=== PATIENT | male | born 1975 | race Hispanic/Latino ===

== ENCOUNTER 2017-04-12 14:59 | Emergency (ER) | payer BC ==
[2017-04-12] MEDS ORDERED: NAPROXEN 500 MG TABLET ONE (15:50)
[2017-06-11] MEDS ORDERED: ACET-2743 PO (14:50)
== END 2017-04-12 15:56 | disposition home or self-care (01) ==
LOC: EDH 14:59
DX: R51 Headache (principal); R20.0 Anesthesia of skin
CPT/HCPCS: 99282

== ENCOUNTER 2017-06-14 07:43 | Day surgery (SDC) | payer BC ==
[2017-06-11 14:05] VITALS: BP 146/99
[2017-06-11 14:52] LABS: BASOPHILS % (AUTO) 0.8 % (0.0-5.0); BILIRUBIN,URINE Negative (NEGATIVE); COLOR,URINE Yellow (YELLOW); EOSINOPHILS % (AUTO) 1.2 % (0.0-8.0); GLUCOSE, URINE (UA) Negative (NEGATIVE); HEMATOCRIT 44.7 % (42-54); KETONES,URINE Negative (NEGATIVE); LEUKOCYTE ESTERASE ,URINE Negative (NEGATIVE); MEAN CORPUSCULAR HEMOGLOBIN 30.8 pg (27.0-33.0); MEAN CORPUSCULAR HGB CONC 34.2 g/dL (32.0-36.0); MONOCYTES % (AUTO) 6.6 % (3.0-13.0); NEUTROPHILS % (AUTO) 56.4 % (40.0-77.0); NITRATE,URINE Negative (NEGATIVE); OCCULT BLOOD,URINE Negative (NEGATIVE); PLATELET COUNT (AUTO) 219 K/uL (130-400); PROTEIN,URINE Negative (NEGATIVE); RED BLOOD CELL COUNT(AUTO) 4.96 MIL/uL (4.50-6.20); RED CELL DISTRIBUTION WIDTH 12.7 % (11.0-15.5); UROBILINOGEN,URINE 0.2 mg/dL (0.2-1.0); WHITE BLOOD COUNT (AUTO) 7.8 K/uL (4.8-10.8)
[2017-06-11 14:54] LABS: APPEARANCE,URINE CLEAR (CLEAR)
[~2017-06-14] VITALS: Ht 176.5 cm; Wt 82.2 kg
[2017-06-14] VITALS (16 sets, daily range): BP systolic 89–141; BP diastolic 45–90
[~2017-06-14 07:43] MED LIST: ACET-2743 PO; CEFAZOLIN SODIUM 1 GM VIAL IVP SCH
[2017-06-14] MEDS ORDERED: LACTATED RINGERS 1000ML 1,000 ML IV ONE (08:23)
[2017-06-14] MEDS ORDERED: BUPIVACAINE/PF 0.25% 30ML VIAL IJ ONE (09:15)
[2017-06-14] MEDS ORDERED: LIDOCAINE HCL MPF 1% 5ML VIAL ONE (09:35)
[2017-06-14] MEDS ORDERED: LIDOCAINE HCL 4% LTA SOL 4 ML VIAL ONE (09:35)
[2017-06-14] MEDS ORDERED: ONDANSETRON HCL MDV 20ML 2 MG/ML VIAL ONE (09:35)
[2017-06-14] MEDS ORDERED: LIDOCAINE HCL 2% JELLY 5 ML ONE (09:35)
[2017-06-14] MEDS ORDERED: PROPOFOL 10 MG/ML 20ML VIAL IV ONE ×2 (09:35→09:54)
[2017-06-14] MEDS ORDERED: MIDAZOLAM HCL 1 MG/ML 2ML VIAL ONE (09:35)
[2017-06-14] MEDS ORDERED: LIDOCAINE PF 2% 5ML ABBOJECT ONE (09:35)
[2017-06-14] MEDS ORDERED: DEXAMETHASONE SOD PHOSPHATE 10MG/ML 1ML VIAL ONE (09:35)
[2017-06-14] MEDS ORDERED: FENTANYL CITRATE PF 50 MCG/1 ML 2ML VIAL ONE (09:36)
== END 2017-06-14 12:50 | disposition home or self-care (01) ==
LOC: DAH 07:43
PROVIDERS: ATTEND Surgery
DX: K42.9 Umbilical hernia without obstruction or gangrene (principal); K40.90 Unilateral inguinal hernia, without obstruction or gangrene, not specified as recurrent
CPT/HCPCS: 36415; 49505; 49585; 81003; 85025; A4450; A4452; A4930 ×2; C1729; C1781 ×2; J1100; J2001; J2250; J2704 ×2; J3010; J3490 ×2; J7030; J7120

== ENCOUNTER 2017-06-21 08:13 | Inpatient (IN) | payer BC ==
[~2017-06-21] VITALS: Ht 175.3 cm; Wt 81.9 kg
[~2017-06-21 08:13] MED LIST changes: -CEFAZOLIN SODIUM 1 GM VIAL IVP SCH
[2017-06-21] MEDS ORDERED: DIATR MEGLU/DIATRIZOATE SODIUM 30 ML BOTTLE ONE (08:42)
[2017-06-21] MEDS ORDERED: IOPAMIDOL-370 75 ML VIAL IV ONE (08:42)
[2017-06-21 08:44] LABS: BASOPHILS % (AUTO) 0.5 % (0.0-5.0); EOSINOPHILS % (AUTO) 0.2 % (0.0-8.0); HEMATOCRIT 43.6 % (42-54); LYMPHOCYTES % (AUTO) 10.6 % (21.0-51.0); MEAN CORPUSCULAR HEMOGLOBIN 31.1 pg (27.0-33.0); MEAN CORPUSCULAR HGB CONC 34.5 g/dL (32.0-36.0); MONOCYTES % (AUTO) 8.2 % (3.0-13.0); NEUTROPHILS % (AUTO) 80.5 % (40.0-77.0); PLATELET COUNT (AUTO) 222 K/uL (130-400); RED BLOOD CELL COUNT(AUTO) 4.85 MIL/uL (4.50-6.20); RED CELL DISTRIBUTION WIDTH 12.8 % (11.0-15.5); WHITE BLOOD COUNT (AUTO) 14.9 K/uL (4.8-10.8)
[2017-06-21] MEDS ORDERED: SODIUM CHLORIDE 0.9% 1000ML 3,000 ML IV ONE (08:53)
[2017-06-21 09:04] LABS: CARBON DIOXIDE 30 mmol/L (21-32); CHLORIDE 96 mmol/L (101-111); CREATININE 1.1 mg/dL (0.5-1.5); GLOMERULAR FILTR. RATE CALC 79 mL/min (>60); GLUCOSE,RANDOM 134 mg/dL (70-105); POTASSIUM 3.7 mmol/L (3.5-5.1); SODIUM SERUM 135 mmol/L (136-145); UREA NITROGEN, BLOOD 13 mg/dL (7-18)
[2017-06-21] MEDS ORDERED: SODIUM CHLORIDE 0.9% 100 ML IV ONE (09:06)
[2017-06-21] MEDS ORDERED: MEROPENEM 1 GM VIAL ONE (09:06)
[2017-06-21 09:20] LABS: ALANINE AMINOTRANSFERASE 27 U/L (12-78); ALBUMIN 3.6 g/dL (3.5-5.0); ASPARTATE AMINOTRANSFERASE 19 U/L (10-37); BILIRUBIN,TOTAL 0.7 mg/dL (0.2-1.0); CREATINE KINASE MB < 0.5 ng/mL (0.5-3.6); CREATINE KINASE, TOTAL 47 U/L (21-232); MYOGLOBIN 41 ng/mL (10-92); TOTAL PROTEIN, SERUM 8.7 g/dL (6.0-8.3); TROPONIN I < 0.04 ng/mL (0.00-0.06)
[2017-06-21 09:23] LABS: PARTIAL THROMBOPLASTIN TIME 30.6 SEC (26.3-35.5); PROTHROMBIN TIME 10.5 SEC (9.6-11.6)
[2017-06-21 09:33] LABS: APPEARANCE,URINE Clear (CLEAR); BILIRUBIN,URINE Negative (NEGATIVE); COLOR,URINE Yellow (YELLOW); GLUCOSE, URINE (UA) Negative (NEGATIVE); KETONES,URINE Negative (NEGATIVE); LEUKOCYTE ESTERASE ,URINE Negative (NEGATIVE); NITRATE,URINE Negative (NEGATIVE); OCCULT BLOOD,URINE Negative (NEGATIVE); PROTEIN,URINE Negative (NEGATIVE); UROBILINOGEN,URINE 0.2 mg/dL (0.2-1.0)
[2017-06-21] MEDS ORDERED: ACETAMINOPHEN 325 MG TAB ONE ×2 (11:23→17:07)
[2017-06-21] MEDS ORDERED: MORPHINE SULFATE 4 MG/1ML SYG ONE (15:13)
[2017-06-21] MEDS ORDERED: LACTATED RINGERS 1000ML 1,000 ML IV ONE (15:13)
[2017-06-21 16:11] VITALS: BP 145/82
[2017-06-21] MEDS ORDERED: MORPHINE SULFATE 4 MG/1ML SYG IV PRN (17:15)
[2017-06-21] MEDS ORDERED: ONDANSETRON HCL MDV 20ML 2 MG/ML VIAL IVP PRN (17:30)
[2017-06-21] MEDS: LACTATED RINGERS 1000ML 1,000 ML IV SCH (18:11)
[2017-06-21] MEDS: METRONIDAZOLE 500MG/100ML BAG 100 ML IVPB SCH (18:13)
[2017-06-21 20:42] VITALS: BP 133/73
[2017-06-21] MEDS: MEROPENEM 1 GM VIAL IVP SCH (22:19)
[2017-06-21] MEDS: ACETAMINOPHEN 325 MG TAB PO PRN (22:28)
[2017-06-21 23:26] VITALS: BP 133/73
[2017-06-22] VITALS (22 sets, daily range): BP systolic 115–146; BP diastolic 65–91
[2017-06-22] MEDS: METRONIDAZOLE 500MG/100ML BAG 100 ML IVPB SCH ×3 (02:34→17:20)
[2017-06-22] MEDS: LACTATED RINGERS 1000ML 1,000 ML IV SCH (02:36)
[2017-06-22 03:49] LABS: HEMATOCRIT 37.4 % (42-54); MEAN CORPUSCULAR HGB CONC 34.5 g/dL (32.0-36.0); MEAN CORPUSCULAR VOLUME 89.7 fL (79-99); PLATELET COUNT (AUTO) 209 K/uL (130-400); RED BLOOD CELL COUNT(AUTO) 4.17 MIL/uL (4.50-6.20); RED CELL DISTRIBUTION WIDTH 12.4 % (11.0-15.5); WHITE BLOOD COUNT (AUTO) 13.3 K/uL (4.8-10.8)
[2017-06-22 03:55] LABS: CREATININE 0.9 mg/dL (0.5-1.5); POTASSIUM 4.1 mmol/L (3.5-5.1)
[2017-06-22] MEDS: MEROPENEM 1 GM VIAL IVP SCH ×3 (07:45→21:04)
[2017-06-22] MEDS ORDERED: MORPHINE SULFATE 4 MG/1ML SYG IV PRN (10:00)
[2017-06-22] MEDS ORDERED: MORPHINE SULFATE 2 MG/ML 1ML SYG IV PRN (10:00)
[2017-06-22] MEDS ORDERED: GLYCOPYRROLATE 0.2 MG/ML 5 ML VIAL ONE (12:23)
[2017-06-22] MEDS ORDERED: LIDOCAINE PF 2% 5ML ABBOJECT ONE (12:23)
[2017-06-22] MEDS ORDERED: PROPOFOL 10 MG/ML 20ML VIAL IV ONE (12:23)
[2017-06-22] MEDS ORDERED: DEXAMETHASONE SOD PHOSPHATE 10MG/ML 1ML VIAL ONE (12:23)
[2017-06-22] MEDS ORDERED: MIDAZOLAM HCL 1 MG/ML 2ML VIAL ONE (12:23)
[2017-06-22] MEDS ORDERED: FENTANYL CITRATE PF 50 MCG/1 ML 2ML VIAL ONE (12:37)
[2017-06-22] MEDS ORDERED: MEPERIDINE-PF 25 MG/ML SYG ONE (13:02)
[2017-06-23] VITALS: BP 126/78
[2017-06-23] MEDS: METRONIDAZOLE 500MG/100ML BAG 100 ML IVPB SCH ×3 (02:01→18:32)
[2017-06-23 04:00] VITALS: BP 130/74
[2017-06-23] MEDS: MEROPENEM 1 GM VIAL IVP SCH ×3 (05:52→22:01)
[2017-06-23] MEDS: LACTATED RINGERS 1000ML 1,000 ML IV SCH (05:52)
[2017-06-23] MEDS: ACETAMINOPHEN 325 MG TAB PO PRN (05:57)
[2017-06-23 08:00] VITALS: BP 125/80
[2017-06-23 11:53] VITALS: BP 122/70
[2017-06-23 16:00] VITALS: BP 140/72
[2017-06-23 19:00] VITALS: BP 137/78
[2017-06-24] VITALS: BP 136/85
[2017-06-24] MEDS: METRONIDAZOLE 500MG/100ML BAG 100 ML IVPB SCH ×3 (02:04→19:29)
[2017-06-24 04:00] VITALS: BP 133/83
[2017-06-24] MEDS: MEROPENEM 1 GM VIAL IVP SCH ×3 (05:36→21:24)
[2017-06-24 08:00] VITALS: BP 139/87
[2017-06-24 11:00] VITALS: BP 137/84
[2017-06-24 16:00] VITALS: BP 139/96
[2017-06-24] MEDS: ACETAMINOPHEN 325 MG TAB PO PRN ×2 (16:08→21:35)
[2017-06-24 19:00] VITALS: BP 138/85
[2017-06-25] VITALS: BP 125/71
[2017-06-25] MEDS: METRONIDAZOLE 500MG/100ML BAG 100 ML IVPB SCH ×2 (02:50→10:02)
[2017-06-25 04:00] VITALS: BP 125/82
[2017-06-25] MEDS: MEROPENEM 1 GM VIAL IVP SCH (05:26)
[2017-06-25 07:55] VITALS: BP 132/93
[2017-06-25 11:00] VITALS: BP 118/88
[2017-06-25] MEDS ORDERED: AMOX-429 PO (13:30)
[2017-06-25] MEDS ORDERED: ACET1TAB12 PO (13:30)
== END 2017-06-25 14:45 | disposition home or self-care (01) | DRG 908 ==
LOC: EDH 08:13 → EDHIP 14:00 → 3AH 15:32
PROVIDERS: ADMIT Surgery; ATTEND Surgery
PROC: 0J980ZZ Drainage of Abdomen Subcutaneous Tissue and Fascia, Open Approach (ICD-10-PCS; principal; 2017-06-22 12:12)
DX: L76.32 Postprocedural hematoma of skin and subcutaneous tissue following other procedure (principal); T81.4XXA Infection following a procedure, initial encounter; L02.211 Cutaneous abscess of abdominal wall; Y81.3 Surgical instruments, materials and general- and plastic-surgery devices (including sutures) associated with adverse incidents; Y92.89 Other specified places as the place of occurrence of the external cause
CPT/HCPCS: 36415; 71045; 74177; 80048; 80053; 81003; 82550; 82553; 83605; 83874; 84484; 85025; 85027; 85610; 85730; 87040; 87070; 87076; 87077; 87088; 87186; 93005; A4218; A6266; J1100; J2001; J2175; J2185; J2250; J2270; J2704; J3010; J3490; J7030; J7120; Q9963; Q9967

== ENCOUNTER 2017-07-16 10:15 | Emergency (ER) | payer BC ==
[~2017-07-16 10:15] MED LIST changes: +ACET1TAB12 PO; +AMOX-429 PO
[2017-07-16 10:57] LABS: BASOPHILS % (AUTO) 0.7 % (0.0-5.0); EOSINOPHILS % (AUTO) 1.3 % (0.0-8.0); HEMATOCRIT 40.7 % (42-54); MEAN CORPUSCULAR HGB CONC 35.8 g/dL (32.0-36.0); MEAN CORPUSCULAR VOLUME 89.2 fL (79-99); MONOCYTES % (AUTO) 10.4 % (3.0-13.0); NEUTROPHILS % (AUTO) 47.6 % (40.0-77.0); PLATELET COUNT (AUTO) 196 K/uL (130-400); RED BLOOD CELL COUNT(AUTO) 4.56 MIL/uL (4.50-6.20); RED CELL DISTRIBUTION WIDTH 12.5 % (11.0-15.5); WHITE BLOOD COUNT (AUTO) 5.2 K/uL (4.8-10.8)
[2017-07-16 11:01] LABS: APPEARANCE,URINE Clear (CLEAR); BILIRUBIN,URINE Negative (NEGATIVE); COLOR,URINE Yellow (YELLOW); GLUCOSE, URINE (UA) Negative (NEGATIVE); KETONES,URINE Negative (NEGATIVE); LEUKOCYTE ESTERASE ,URINE Negative (NEGATIVE); NITRATE,URINE Negative (NEGATIVE); OCCULT BLOOD,URINE Negative (NEGATIVE); PROTEIN,URINE Negative (NEGATIVE); UROBILINOGEN,URINE 0.2 mg/dL (0.2-1.0)
[2017-07-16 11:11] LABS: AMPHET/METH SCREEN,URINE NEGATIVE (NEGATIVE); BARBITURATE SCREEN, URINE NEGATIVE (NEGATIVE); BENZODIAZEPINES SCREEN,URINE NEGATIVE (NEGATIVE); CANNABINOID SCREEN,URINE NEGATIVE (NEGATIVE); COCAINE SCREEN,URINE NEGATIVE (NEGATIVE); OPIATE SCREEN,URINE NEGATIVE (NEGATIVE); PHENCYCLIDINE SCREEN,URINE NEGATIVE (NEGATIVE)
[2017-07-16 11:13] LABS: CREATININE 0.8 mg/dL (0.5-1.5); POTASSIUM 4.2 mmol/L (3.5-5.1)
[2017-07-16 11:17] LABS: ALBUMIN 3.8 g/dL (3.5-5.0); BILIRUBIN,TOTAL 0.2 mg/dL (0.2-1.0); TOTAL PROTEIN, SERUM 8.3 g/dL (6.0-8.3)
== END 2017-07-16 11:42 | disposition home or self-care (01) ==
LOC: EDH 10:15
DX: S39.011A Strain of muscle, fascia and tendon of abdomen, initial encounter (principal); Z98.890 Other specified postprocedural states; Z79.899 Other long term (current) drug therapy; X58.XXXA Exposure to other specified factors, initial encounter; Y93.89 Activity, other specified; Y92.89 Other specified places as the place of occurrence of the external cause; Y99.8 Other external cause status
CPT/HCPCS: 36415; 80053; 80305; 81003; 83690; 85025

== ENCOUNTER 2017-09-16 13:27 | Emergency (ER) | payer BC | END 2017-09-16 14:40 | disposition home or self-care (01) | LOC: EDH 13:27 | DX: R10.2 Pelvic and perineal pain (principal); Z98.890 Other specified postprocedural states | CPT/HCPCS: 99281 ==

== ENCOUNTER 2018-03-21 17:20 | Emergency (ER) | payer BC ==
[2018-03-21 17:57] LABS: APPEARANCE,URINE Clear (CLEAR); BILIRUBIN,URINE Negative (NEGATIVE); COLOR,URINE Yellow (YELLOW); GLUCOSE, URINE (UA) Negative (NEGATIVE); KETONES,URINE Negative (NEGATIVE); LEUKOCYTE ESTERASE ,URINE Negative (NEGATIVE); NITRATE,URINE Negative (NEGATIVE); OCCULT BLOOD,URINE Negative (NEGATIVE); PH,URINE 5.5 (5.0-8.0); PROTEIN,URINE Negative (NEGATIVE); UROBILINOGEN,URINE 0.2 mg/dL (0.2-1.0)
== END 2018-03-21 18:39 | disposition home or self-care (01) ==
LOC: EDH 17:20
DX: S39.011A Strain of muscle, fascia and tendon of abdomen, initial encounter (principal); Z98.890 Other specified postprocedural states; X58.XXXA Exposure to other specified factors, initial encounter; Y93.89 Activity, other specified; Y92.89 Other specified places as the place of occurrence of the external cause; Y99.8 Other external cause status
CPT/HCPCS: 81003

== ENCOUNTER 2019-09-19 18:22 | Emergency (ER) | payer BC ==
[2019-09-19] MEDS ORDERED: DICYCLOMINE HCL 10 MG/ML 2ML AMP IM ONE (19:35)
[2019-09-19] MEDS ORDERED: KETOROLAC TROMETHAMINE 60 MG/2 ML VIAL ONE (21:07)
[2019-09-19] MEDS ORDERED: LEVOFLOXACIN 500 MG TABLET ONE (21:07)
[2019-09-19] MEDS ORDERED: METRONIDAZOLE 500 MG TABLET ONE (21:07)
== END 2019-09-19 21:33 | disposition home or self-care (01) ==
LOC: EDH 18:22
DX: K59.00 Constipation, unspecified (principal); K57.30 Diverticulosis of large intestine without perforation or abscess without bleeding; I10 Essential (primary) hypertension
CPT/HCPCS: 36415; 74176; 80053; 81003; 83690; 85025; 96372; 99284; J0500; J1885

== ENCOUNTER 2020-01-11 08:50 | Emergency (ER) | payer BC ==
[2020-01-11 09:16] LABS: BASOPHILS % (AUTO) 0.7 % (0.0-5.0); EOSINOPHILS % (AUTO) 0.9 % (0.0-8.0); HEMATOCRIT 45.3 % (42-54); LYMPHOCYTES % (AUTO) 45.7 % (21.0-51.0); MEAN CORPUSCULAR HEMOGLOBIN 30.9 pg (27.0-33.0); MEAN CORPUSCULAR HGB CONC 34.2 g/dL (32.0-36.0); MEAN CORPUSCULAR VOLUME 90.4 fL (79-99); MONOCYTES % (AUTO) 7.7 % (3.0-13.0); NEUTROPHILS % (AUTO) 44.8 % (40.0-77.0); PLATELET COUNT (AUTO) 245 K/uL (130-400); RED BLOOD CELL COUNT(AUTO) 5.01 MIL/uL (4.50-6.20); RED CELL DISTRIBUTION WIDTH 12.2 % (11.0-15.5); WHITE BLOOD COUNT (AUTO) 5.6 K/uL (4.8-10.8)
[2020-01-11 09:19] LABS: APPEARANCE,URINE Clear (CLEAR); BILIRUBIN,URINE Negative (NEGATIVE); COLOR,URINE Yellow (YELLOW); GLUCOSE, URINE (UA) Negative (NEGATIVE); KETONES,URINE Negative (NEGATIVE); LEUKOCYTE ESTERASE ,URINE Trace (NEGATIVE); NITRATE,URINE Negative (NEGATIVE); OCCULT BLOOD,URINE Negative (NEGATIVE); PH,URINE 5.5 (5.0-8.0); PROTEIN,URINE Negative (NEGATIVE); UROBILINOGEN,URINE 0.2 mg/dL (0.2-1.0)
[2020-01-11 09:22] LABS: CREATININE 1.4 mg/dL (0.5-1.5); POTASSIUM 4.1 mmol/L (3.5-5.1)
[2020-01-11] MEDS ORDERED: KETOROLAC TROMETHAMINE 30MG/ML ONE (09:25)
[2020-01-11] MEDS ORDERED: ONDANSETRON HCL 4 MG/2 ML VIAL ONE (09:25)
[2020-01-11 09:26] LABS: ALBUMIN 4.3 g/dL (3.5-5.0); BILIRUBIN,TOTAL 0.4 mg/dL (0.2-1.0); TOTAL PROTEIN, SERUM 8.8 g/dL (6.0-8.3)
[2020-01-11] MEDS ORDERED: SODIUM CHLORIDE 0.9% 500ML 500 ML IV ONE (09:26)
[2020-01-11 09:29] LABS: RBC,URINE None Seen /HPF (0-1)
[2020-01-11 09:30] LABS: BACTERIA,URINE Rare /HPF (None Seen); SQUAMOUS EPITHELIAL CELL,UR 0-2 /HPF (0-2); WBC,URINE 0-1 /HPF (0-1)
== END 2020-01-11 12:02 | disposition home or self-care (01) ==
LOC: EDH 08:50
DX: R10.12 Left upper quadrant pain (principal); I10 Essential (primary) hypertension
CPT/HCPCS: 36415; 74176; 80053; 81001; 82150; 83690; 84484; 85025; 93005; 96361; 96374; 96375; 99285; J1885; J2405; J7040

== ENCOUNTER → 2020-03-02 | Outpatient (CLI) | payer BC | END | disposition home or self-care (01) | LOC: RAH 11:05 | PROVIDERS: ATTEND Internal Medicine Gastroenterology | DX: K59.00 Constipation, unspecified (principal); K30 Functional dyspepsia; R14.0 Abdominal distension (gaseous); R10.12 Left upper quadrant pain; I10 Essential (primary) hypertension; R11.0 Nausea | CPT/HCPCS: 78264; A9541 ==

== ENCOUNTER 2020-09-02 19:26 | Emergency (ER) | payer BC | END 2020-09-02 19:34 | disposition left against medical advice (07) | LOC: EDH 19:26 | DX: R10.9 Unspecified abdominal pain (principal); Z53.21 Procedure and treatment not carried out due to patient leaving prior to being seen by health care provider ==